=== PATIENT | female | born 1965 | race Two or more races ===

== ENCOUNTER 2017-06-05 17:37 | Emergency (ER) | payer SELFPAY ==
[~2017-06-05] VITALS: Ht 160 cm; Wt 61.2 kg
--- NOTE | 2017-06-05 19:01 | PHYS DOC ---
Past Medical History Past Medical History: Anxiety, GERD Past Surgical History: Cholecystectomy Alcohol Use: Occasionally Drug Use: None Adult General Chief Complaint Chief Complaint: NAUSEA/VOMITING/DIARRHA HPI HPI Patient is a 51 year old female who presents with nausea vomiting and diarrhea intermittently for the last 6 weeks. Patient is also complaining of feeling anxious intermittently for six weeks. Patient states she was seen by the PCP who diagnosed her with acid reflex and put her on Protonix. Patient states this has not helped her symptoms. Patient denies any abdominal pain. Denies any chest pain or shortness of breath. She is a smoker. She states most of her nausea and vomiting AFTER eating. Patient denies any suicidal or homicidal ideation. Review of Systems Review of Systems Constitutional: Denies fever or chills [] Eyes: Denies change in visual acuity, redness, or eye pain [] HENT: Denies nasal congestion or sore throat [] Respiratory: Denies cough or shortness of breath [] Cardiovascular: No additional information not addressed in HPI [] GI: nausea, vomiting, and diarrhea [] : Denies dysuria or hematuria [] Musculoskeletal: Denies back pain or joint pain [] Integument: Denies rash or skin lesions [] Neurologic: Denies headache, focal weakness or sensory changes [] Endocrine: Denies polyuria or polydipsia [] Psych:anxiety Current Medications Current Medications Current Medications Medications (Trade) Dose Ordered Sig/Beatrice Start Time Stop Time Status Last Admin Dose Admin Alprazolam (Xanax) 0.5 mg 1X ONCE 06/05/17 20:00 06/05/17 20:01 DC 06/05/17 20:30 0.5 MG Dicyclomine HCl (Bentyl) 20 mg 1X ONCE 06/05/17 20:00 06/05/17 20:01 DC 06/05/17 20:30 20 MG Famotidine (Pepcid) 20 mg 1X ONCE 06/05/17 20:00 06/05/17 20:01 DC 06/05/17 20:29 20 MG Info (Do NOT chart on this entry -- for MONITORING) 1 each PRN DAILY PRN 06/05/17 19:45 06/07/17 19:44 Iohexol (Omnipaque 300 Mg/ml) 75 ml 1X ONCE 06/05/17 20:00 06/05/17 20:01 DC 06/05/17 20:19 75 ML Ondansetron HCl (Zofran) 4 mg 1X ONCE 06/05/17 20:00 06/05/17 20:01 DC 06/05/17 20:29 4 MG Sodium Chloride 1,000 ml @ 1,000 mls/hr 1X ONCE 06/05/17 20:00 06/05/17 20:59 DC 06/05/17 20:29 1,000 MLS/HR Allergies Allergies Allergies Coded Allergies Type Severity Reaction Last Updated Verified No Known Drug Allergies 06/05/17 No Physical Exam Physical Exam Constitutional: Well developed, well nourished, no acute distress, non-toxic appearance. [] HENT: Normocephalic, atraumatic, bilateral external ears normal, oropharynx moist, no oral exudates, nose normal. [] Eyes: PERRLA, EOMI, conjunctiva normal, no discharge. [] Neck: Normal range of motion, no tenderness, supple, no stridor. [] Cardiovascular:Heart rate regular rhythm, no murmur [] Lungs & Thorax: Bilateral breath sounds clear to auscultation [] Abdomen: Bowel sounds normal, soft, no tenderness, no masses, no pulsatile masses. [] Skin: Warm, dry, no erythema, no rash. [] Back: No tenderness, no CVA tenderness. [] Extremities: No tenderness, no cyanosis, no clubbing, ROM intact, no edema. [] Neurologic: Alert and oriented X 3, normal motor function, normal sensory function, no focal deficits noted. [] Psychologic: Affect normal, judgement normal, mood normal. [] Current Patient Data Vital Signs Vital Signs Date Time Temp Pulse Resp B/P (MAP) Pulse Ox O2 Delivery O2 Flow Rate FiO2 06/05/17 18:35 98.3 68 20 123/62 (82) 97 Room Air 98.3 Lab Values Laboratory Tests Test 06/05/17 18:24 06/05/17 19:08 06/05/17 19:25 POC Urine HCG, Qualitative Hcg negative (Negative) Urine Collection Type Unknown Urine Color Yellow Urine Clarity Clear Urine pH 6.5 Urine Specific [place] <=1.005 Urine Protein Negative mg/dL (NEG-TRACE) Urine Glucose (UA) Negative mg/dL (NEG) Urine Ketones (Stick) Negative mg/dL (NEG) Urine Blood Small (NEG) Urine Nitrite Negative (NEG) Urine Bilirubin Negative (NEG) Urine Urobilinogen Dipstick 0.2 mg/dL (0.2 mg/dL) Urine Leukocyte Esterase Negative (NEG) Urine RBC Occ /HPF (0-2) Urine WBC 0 /HPF (0-4) Urine Squamous Epithelial Cells Few /LPF Urine Bacteria 0 /HPF (0-FEW) Urine Opiates Screen Neg (NEG) Urine Methadone Screen Neg (NEG) Urine Barbiturates Neg (NEG) Urine Phencyclidine Screen Neg (NEG) Urine Amphetamine/Methamphetamine Neg (NEG) Urine Benzodiazepines Screen Neg (NEG) Urine Cocaine Screen Neg (NEG) Urine Cannabinoids Screen Neg (NEG) Urine Ethyl Alcohol Neg (NEG) White Blood Count 8.2 x10^3/uL (4.0-11.0) Red Blood Count 5.19 x10^6/uL (3.50-5.40) Hemoglobin 16.6 g/dL (12.0-15.5) H Hematocrit 48.4 % (36.0-47.0) H Mean Corpuscular Volume 93 fL (79-100) Mean Corpuscular Hemoglobin 32 pg (25-35) Mean Corpuscular Hemoglobin Concent 34 g/dL (31-37) Red Cell Distribution Width 14.0 % (11.5-14.5) Platelet Count 179 x10^3/uL (140-400) Neutrophils (%) (Auto) 68 % (31-73) Lymphocytes (%) (Auto) 24 % (24-48) Monocytes (%) (Auto) 7 % (0-9) Eosinophils (%) (Auto) 1 % (0-3) Basophils (%) (Auto) 1 % (0-3) Neutrophils # (Auto) 5.6 x10^3uL (1.8-7.7) Lymphocytes # (Auto) 2.0 x10^3/uL (1.0-4.8) Monocytes # (Auto) 0.6 x10^3/uL (0.0-1.1) Eosinophils # (Auto) 0.1 x10^3/uL (0.0-0.7) Basophils # (Auto) 0.0 x10^3/uL (0.0-0.2) Platelet Estimate Adequate (ADEQUATE) Giant Platelets Present Prothrombin Time 13.0 SEC (11.7-14.0) Prothrombin Time INR 1.0 (0.8-1.1) PTT 37 SEC (24-38) Sodium Level 140 mmol/L (136-145) Potassium Level 4.5 mmol/L (3.5-5.1) Chloride Level 102 mmol/L (98-107) Carbon Dioxide Level 27 mmol/L (21-32) Anion Gap 11 (6-14) Blood Urea Nitrogen 6 mg/dL (7-20) L Creatinine 0.6 mg/dL (0.6-1.0) Estimated GFR (Cockcroft-Gault) 105.4 BUN/Creatinine Ratio 10 (6-20) Glucose Level 96 mg/dL (70-99) Calcium Level 9.4 mg/dL (8.5-10.1) Total Bilirubin 0.5 mg/dL (0.2-1.0) Aspartate Amino Transferase (AST) 31 U/L (15-37) Alanine Aminotransferase (ALT) 32 U/L (14-59) Alkaline Phosphatase 121 U/L (46-116) H Creatine Kinase 95 U/L (26-192) Creatine Kinase MB (Mass) < 0.5 ng/mL (0.0-3.6) Creatine Kinase MB Relative Index 0.5 % (0-4) Troponin I Quantitative < 0.017 ng/mL (0.000-0.055) HO-Lpd-M-Type Natriuretic Peptide 63 pg/mL (0-124) Total Protein 7.8 g/dL (6.4-8.2) Albumin 3.9 g/dL (3.4-5.0) Albumin/Globulin Ratio 1.0 (1.0-1.7) Lipase 133 U/L (73-393) Thyroid Stimulating Hormone (TSH) 1.178 uIU/mL (0.358-3.74) Ethyl Alcohol Level < 10 mg/dL (0-10) Laboratory Tests 06/05/17 19:25 Laboratory Tests 06/05/17 19:25 EKG EKG 19:[address] Zurita, sinus rate them, heart rate 72, QRS interval 72, no STEMI.[] Radiology/Procedures Radiology/Procedures [] Course & Med Decision Making Course & Med Decision Making Pertinent Labs and Imaging studies reviewed. (See chart for details) This is a 51-year-old female patient presenting to the ED with nausea vomiting diarrhea and anxiety for 6 weeks. She was seen by the PCP and was diagnosed with acid reflex. Patient states Protonix has not helped her symptoms. Labs are negative for any acute findings. CT of the abdomen and pelvic is negative for anything acute. Patient was discharged with instructions to follow- up with [facility] as well as her PCP. Discharged with Zofran and Atarax. Provided return precautions and discharged in stable condition. Dragon Disclaimer Dragon Disclaimer This electronic medical record was generated, in whole or in part, using a voice recognition dictation system. Departure Departure Impression: Primary Impression: Nausea and vomiting Additional Impressions: Anxiety Diarrhea Disposition: HOME, SELF-CARE Condition: STABLE Referrals: YORDY WITT FNP (PCP) Follow-up with your doctor on Tuesday Patient Instructions: Anxiety and Panic Attacks, Diarrhea, Nausea and Vomiting Additional Instructions: You were seen with multiple complaints including nausea vomiting diarrhea and anxiety. We highly recommend you follow-up with your primary care doctor as well as [facility]. Take the prescribed medicines as ordered. Scripts Ondansetron (ZOFRAN ODT) 4 Mg Tab.rapdis 1 TAB SL Q8HRS, #15 TAB Prov: CONSTANCE DANIELSON APRN 06/05/17 Hydroxyzine Hcl (HYDROXYZINE HCL) 25 Mg Tablet 1 TAB PO TID, #30 TAB Prov: CONSTANCE DANIELSON APRN 06/05/17 Problem Qualifiers Primary Impression: Nausea and vomiting Vomiting type: unspecified Vomiting Intractability: non-intractable Qualified Codes: R11.2 - Nausea with vomiting, unspecified Additional Impressions: Diarrhea Diarrhea type: unspecified type Qualified Codes: R19.7 - Diarrhea, unspecified CONSTANCE DANIELSON APRN Jun 05, 2017 19:01
[2017-06-05 19:44] LABS: BARBITURATES NEG (NEG); BENZODIAZEPINES NEG (NEG); CANNABINOIDS NEG (NEG); COCAINE NEG (NEG); METHADONE NEG (NEG); OPIATES NEG (NEG); PHENCYCLIDINE NEG (NEG)
[2017-06-05] MEDS ORDERED: CONTRAST GIVEN MC PRN (19:45)
[2017-06-05 19:49] LABS: BILIRUBIN,URINE NEGATIVE (NEG); GLUCOSE,URINE NEGATIVE (NEG); NITRITE,URINE NEGATIVE (NEG); PH,URINE 6.5; PROTEIN,URINE NEGATIVE (NEG-TRACE); UROBILINOGEN,URINE 0.2 mg/dL (0.2 mg/dL)
[2017-06-05 19:50] LABS: BASO % 1 % (0-3); EOS % 1 % (0-3); HEMATOCRIT 48.4 % (36.0-47.0); HEMOGLOBIN 16.6 g/dL (12.0-15.5); LYMPH % 24 % (24-48); MEAN CORPUSCULAR HEMOGLOBIN 32 pg (25-35); MEAN CORPUSCULAR HGB CONC 34 g/dL (31-37); MEAN CORPUSCULAR VOLUME 93 fL (79-100); MONO % 7 % (0-9); NEUT % 68 % (31-73); PLATELET COUNT 179 x10^3/uL (140-400); RED BLOOD COUNT 5.19 x10^6/uL (3.50-5.40); WHITE BLOOD COUNT 8.2 x10^3/uL (4.0-11.0)
[2017-06-05] MEDS ORDERED: DICYCLOMINE HCL 10 MG CAPSULE PO ONE (20:00)
[2017-06-05] MEDS ORDERED: IOHEXOL 300 MG/ML 75 ML VIAL IV ONE (20:00)
[2017-06-05] MEDS ORDERED: FAMOTIDINE 20 MG/2 ML VIAL IVP ONE (20:00)
[2017-06-05] MEDS ORDERED: ALPRAZolam 0.5 MG TABLET PO ONE (20:00)
[2017-06-05] MEDS ORDERED: IV NORMAL SALINE 1000ML BAG 1,000 ML IV ONE (20:00)
[2017-06-05] MEDS ORDERED: ONDANSETRON PF 4 MG/2 ML VIAL. IV ONE (20:00)
[2017-06-05 20:05] LABS: BACTERIA,URINE 0 /HPF (0-FEW); RBC,URINE OCC /HPF (0-2); SQUAMOUS EPITHELIAL CELL,UR FEW /LPF; WBC,URINE 0 /HPF (0-4)
[2017-06-05 20:07] LABS: CALCIUM 9.4 mg/dL (8.5-10.1); CREATININE 0.6 mg/dL (0.6-1.0); GFR 105.4
[2017-06-05 20:08] LABS: POTASSIUM 4.5 mmol/L (3.5-5.1)
[2017-06-05 20:14] LABS: ALBUMIN 3.9 g/dL (3.4-5.0); TOTAL BILIRUBIN 0.5 mg/dL (0.2-1.0); TOTAL PROTEIN 7.8 g/dL (6.4-8.2)
[2017-06-05 20:19] LABS: CREATINE KINASE 95 U/L (26-192)
[2017-06-05 20:20] LABS: CKMB MASS < 0.5 ng/mL (0.0-3.6)
--- NOTE | 2017-06-05 20:59 | RAD ---
CT abdomen and pelvis with contrast TECHNIQUE: Helical CT imaging of the abdomen and pelvis acquired with 75 mL Omnipaque 350 venous contrast. HISTORY: Nausea, vomiting and diarrhea. Abdomen findings: Cholecystectomy. Liver, pancreas, adrenals, spleen and kidneys are unremarkable. Appendix is negative. No obstruction or inflammation GI tract. Calcified plaque of the aorta and iliac arteries. No abdominal fluid or adenopathy. Pelvis findings: 15 mm hypodensity left ovary. Right ovary, uterus, bladder, rectum and bones are unremarkable. No pelvic fluid or adenopathy. IMPRESSION: No acute process in the abdomen or pelvis. The appendix is negative. 15 mm hypodensity left ovary likely a follicle or small cyst. Exposure: One or more of the following individualized dose reduction techniques were utilized for this examination: 1. Automated exposure control 2. Adjustment of the mA and/or kV according to patient size 3. Use of iterative reconstruction technique Electronically signed by: Bhavik Garcia MD (06/05/2017 8:55 PM) [facility]
[2017-06-05 21:07] LABS: PLT ESTIMATE ADEQUATE (ADEQUATE)
[2017-06-05 22:00] VITALS: BP 110/53
[2017-06-05] MEDS ORDERED: HYDR25TA PO (22:12)
[2017-06-05] MEDS ORDERED: ONDA4TAB10 SL (22:12)
--- NOTE | 2017-06-06 14:13 | EKG ---
[facility] [address] [place] [address] Test Date: 2017-06-05 Test Time: 19:18:22 Pat Name: ELIEL SANDHYA SHABAZZDepartment: Room: Gender: F Acds Block 1 Operator: : 1965 Requested By: CONSTANCE DANIELSON Order Number: [id number] Reading MD: Measurements Intervals [place] Rate: 72 P: 43 CO: 172 QRS: -7 QRSD: 72 T: 25 QT: 366 QTc: 402 Interpretive Statements SINUS RHYTHM LEFTWARD AXIS LOW LIMB LEAD VOLTAGE RI6.01 Unconfirmed report No previous ECG available for comparison
== END 2017-06-05 22:21 | disposition home or self-care (01) ==
LOC: ER 17:37
DX: R11.2 Nausea with vomiting, unspecified (principal); R19.7 Diarrhea, unspecified; F41.9 Anxiety disorder, unspecified; K21.9 Gastro-esophageal reflux disease without esophagitis; F17.200 Nicotine dependence, unspecified, uncomplicated; Z90.49 Acquired absence of other specified parts of digestive tract
CPT/HCPCS: 36415; 74177; 80053; 80307; 81001; 81025; 82553; 83690; 83880; 84443; 84484; 85025; 85610; 85730; 93005; 96361; 96374; 96375; 99285; G0480; J2405; J7030; Q9967; S0028; G0479